=== PATIENT | male | born 1960 | race Caucasian/White ===

== ENCOUNTER 2021-03-13 15:01 | Outpatient (REF) | payer SELFPAY ==
[2021-03-15 16:41] LABS: COVID-19 RT-PCR UVMMC Result Negative (Negative)
== END 2021-03-13 15:02 | disposition home or self-care (01) ==
LOC: NCHCN 15:01
PROVIDERS: PCP Family Medicine; Visit Provider Family Medicine
DX: Z20.822 Contact with and (suspected) exposure to COVID-19 (principal)
CPT/HCPCS: U0003